=== PATIENT | female | born 1940 | race Caucasian/White ===

== ENCOUNTER 2018-08-30 05:15 | Inpatient (IN) ==
--- NOTE | 2018-08-11 09:17 | PAT Medication Instructions ---
Medication Instructions Date of Service August 11, 2018 Home Medications albuterol sulfate 1 - 2 puff INHALATION UD PRN aspirin [Aspir-81] 81 mg PO DAILY benazepril 40 mg PO QAM budesonide [Pulmicort Flexhaler] 1 inh INHALATION BID PRN gabapentin 800 mg PO TID hydrochlorothiazide 25 mg PO QAM insulin glargine [Lantus U-100 20 unit SUBCUT QPM lorazepam 1 mg PO BID PRN metformin 1,000 mg PO BID metoprolol tartrate 25 mg PO BID montelukast [Singulair] 10 mg PO QAM nitroglycerin 1 tab SUBLINGUAL UD PRN oxycodone-acetaminophen 1 tab PO Q4 PRN pantoprazole 40 mg PO QAM potassium chloride 10 meq PO TID ASK your prescriber and surgeon aspirin [Aspir-81] 81 mg PO DAILY DO NOT take the morning of surgery benazepril 40 mg PO QAM hydrochlorothiazide 25 mg PO QAM metformin 1,000 mg PO BID montelukast [Singulair] 10 mg PO QAM potassium chloride 10 meq PO TID Take morning of surgery With a small sip of water, OTHERWISE NOTHING TO EAT OR DRINK AFTER MIDNIGHT: albuterol sulfate 1 - 2 puff INHALATION UD PRN (use if needed; please bring with you to hospital day of surgery if possible) budesonide [Pulmicort Flexhaler] 1 inh INHALATION BID PRN (if needed) gabapentin 800 mg PO TID lorazepam 1 mg PO BID PRN (if needed) metoprolol tartrate 25 mg PO BID nitroglycerin 1 tab SUBLINGUAL UD PRN (if needed) oxycodone-acetaminophen 1 tab PO Q4 PRN (okay to take up to 4 hours prior to surgery if needed) pantoprazole 40 mg PO QAM Take evening before surgery albuterol sulfate 1 - 2 puff INHALATION UD PRN (if needed) budesonide [Pulmicort Flexhaler] 1 inh INHALATION BID PRN (if needed) gabapentin 800 mg PO TID insulin glargine [Lantus U-100 20 unit SUBCUT QPM lorazepam 1 mg PO BID PRN (if needed) metformin 1,000 mg PO BID metoprolol tartrate 25 mg PO BID nitroglycerin 1 tab SUBLINGUAL UD PRN (if needed) oxycodone-acetaminophen 1 tab PO Q4 PRN (if needed) potassium chloride 10 meq PO TID Other Notes If you have any questions please call us at [phone] or [phone] or [phone] or [phone]
--- NOTE | 2018-08-11 12:33 | Anesthesiology Consultation ---
Date of Service August 11, 2018 Assessment & Plan (1) Encounter for pre-operative examination: Plan: - Check BSG AM DOS - Cardio= 12/03/17= chronic AGUERO "at baseline." BP meds adjusted. CAD "stable." BP 135/78 at PAT visit. - PCP= 08/24/18= "no contraindications to surgery noted." Chart Review Chart Review: Acceptable Risk for Surgery and Patient seen in Pre Admission Testing Teaching & Discussion Pre-Anesthesia Teaching/Discussion Notes: Instructed NPO after midnight before surgery,except medications with 15 cc of water. Medication instructions provided according to the [facility] guidelines. History Surgery Operation Date: 08/30/18 09:35 Proposed Procedures p C5-C7 Anterior Cervical Discectomy and Fusion - Sonu Castellanos DO Height/Weight Height: 5 ft 5 in Weight: 114.4 kg Allergies Allergy/AdvReac Type Severity Reaction Status Date / Time atenolol Allergy Unknown UNKNOWN Verified 04/11/16 07:14 citalopram Allergy Unknown UNKNOWN Verified 04/11/16 07:14 hydroxychloroquine Allergy Unknown UNKNOWN Verified 04/11/16 07:14 venlafaxine Allergy Unknown UNKNOWN Verified 04/11/16 07:14 adhesive AdvReac Unknown TAPE - Verified 08/11/18 09:13 "TEARS SKIN" amlodipine AdvReac Unknown ?HYPOTENSIO Verified 08/11/18 09:13 N atorvastatin AdvReac Unknown MYALGIAS Verified 08/11/18 09:13 mivacurium AdvReac Unknown DIARRHEA- Verified 08/11/18 12:42 PATIENT DENIES simvastatin AdvReac Unknown MYALGIAS Verified 08/11/18 09:13 Medications Home Medications Medication Instructions Recorded Confirmed Last Taken albuterol sulfate 1 - 2 puff INHALATION UD PRN 08/04/18 08/04/18 Unknown aspirin [Aspir-81] 81 mg PO DAILY 08/04/18 08/04/18 08/03/18 benazepril 40 mg PO QAM 08/04/18 08/04/18 08/04/18 budesonide [Pulmicort Flexhaler] 1 inh INHALATION BID PRN 08/04/18 08/04/18 Unknown gabapentin 800 mg PO TID 08/04/18 08/04/18 08/04/18 hydrochlorothiazide 25 mg PO QAM 08/04/18 08/04/18 08/04/18 insulin glargine [Lantus U-100 20 unit SUBCUT QPM 08/04/18 08/04/18 08/03/18 Insulin] lorazepam 1 mg PO BID PRN 08/04/18 08/04/18 Unknown metformin 1,000 mg PO BID 08/04/18 08/04/18 08/04/18 metoprolol tartrate 25 mg PO BID 08/04/18 08/04/18 08/04/18 montelukast [Singulair] 10 mg PO QAM 08/04/18 08/04/18 08/04/18 nitroglycerin 1 tab SUBLINGUAL UD PRN 08/04/18 08/04/18 Unknown oxycodone-acetaminophen 1 tab PO Q4 PRN 08/04/18 08/04/18 Unknown pantoprazole 40 mg PO QAM 08/04/18 08/04/18 08/04/18 potassium chloride 10 meq PO TID 08/04/18 08/04/18 08/04/18 Past Medical History Medical History Acid reflux CONTROLLED Anxiety and depression Asthma STABLE CAD (coronary artery disease) NON-OBSTRUCTIVE PER 2003 CARDIAC CATH Degenerative disc disease Diabetes IDDM Fatty liver History of kidney stones History of skin cancer NO CHEMO OR RADIATION Hyperlipidemia Hypertension IBS (irritable bowel syndrome) Kidney cysts Morbid obesity Snores NO SLEEP STUDY Past Family History Family History Father Family history of lung cancer Family history of liver cancer Mother Family history of congestive heart failure Brother Family history of heart attack Past Surgical History Surgical History History of cardiac catheterization 2003= NO STENTS History of colonoscopy History of cystoscopy 2/2 KIDNEY STONES History of hysterectomy History of laparoscopic cholecystectomy STOP BANG Total 5 Social History Smoking Status: Former smoker tobacco type: cigarettes Smoking cigarettes per day: QUIT 30 YRS AGO Do You Dip or Chew Tobacco: No Hx Alcohol Use: No Hx Substance Use: No substance use type: does not use Physical Exam Vital Signs VITALS BP 135/78 P 66 TEMP 98.2 SP02 93%RA RESP 18 PHYSICAL Full neck and c-spine range of motion. Cervicalgia with extension. Full TMJ range of motion. TMD 3 finger breaths Mallampati Score 2 Dentition: full dentures on upper; several missing on lower Lungs: clear throughout to auscultation Cardiac: regular rate and rhythm, no murmurs noted Spine: normal Carotid arteries: negative bruit Extremities: no edema Testing Electrocardiogram Date: 03/01/18 Findings: + NSR @ (87) Possible LAE. NS STA. Chest X-Ray Date: 03/01/18 Findings: + NAD Stress Test Date: 03/02/18 Type: DSE (LEXISCAN) DSE negative for induced myocardial ischemia at 106% MPHR. EF 60%. Small sized basal septal/inferior wall motion abnormal with HK. No significant valvular disease. Grade I DD. Laboratory Results 08/11/18 12:54 08/11/18 12:54 Blood Type AB Negative 08/11/18 12:54 Antibody Screen NEGATIVE 08/11/18 12:54 PT 9.7 Seconds (9.0-12.0) 08/11/18 12:54 INR 1.0 (0.9-1.1) 08/11/18 12:54 APTT 24.2 Seconds (21.0-31.0) 08/11/18 12:54 Hemoglobin A1c 7.2 % (4.5-5.6) H 08/11/18 12:54 Urine Color Yellow 08/11/18 Unknown Urine Appearance Clear (Clear) 08/11/18 Unknown Urine pH 5.0 (4.5-7.5) 08/11/18 Unknown Ur Specific [place] 1.022 (1.000-1.030) 08/11/18 Unknown Urine Protein Negative (Negative) 08/11/18 Unknown Urine Glucose (UA) Negative (Negative) 08/11/18 Unknown Urine Ketones Negative (Negative) 08/11/18 Unknown Urine Nitrite Negative (Negative) 08/11/18 Unknown Ur Leukocyte Esterase Negative (Negative) 08/11/18 Unknown
[2018-08-11 13:19] LABS: Basophils # (auto) 0.02 K/uL (0-0.2); Basophils % (auto) 0.2 %; Eosinophils # (auto) 0.41 K/uL (0-0.5); Eosinophils % (auto) 4.7 %; Hematocrit (blood only) 44.4 % (37-47); Hemoglobin 14.3 g/dL (12.0-16.0); Immature Granulocytes # (auto) 0.02 K/uL (0.00-0.02); Immature Granulocytes % (auto) 0.2 %; Lymphocytes # (auto) 2.26 K/uL (1.2-3.4); Lymphocytes % (auto) 25.8 %; Mean Corpuscular Hgb Conc 32.2 g/dL (32-36); Mean Corpuscular Volume 94.5 fL (80-100); Mean Platelet Volume 10.5 fL (7.4-10.4); Monocytes # (auto) 0.78 K/uL (0.11-0.59); Monocytes % (auto) 8.9 %; Neutrophils # (auto) 5.26 K/uL (1.4-6.5); Neutrophils % (auto) 60.2 %; Platelet Count 276 K/uL (130-400); RDW Coefficient of Variation 13.8 % (11.5-14.5); RDW Standard Deviation 47.8 fL (36.4-46.3); White Blood Count 8.75 K/uL (4.8-10.8)
[2018-08-11 13:38] LABS: Estimated Average Glucose 160 mg/dl; Hemoglobin A1C 7.2 % (4.5-5.6)
[2018-08-11 13:48] LABS: Appearance Urine Clear (Clear); Bilirubin Urine Negative (Negative); Blood Urine Negative (Negative); Color Urine Yellow; Glucose Urine UA Negative (Negative); Ketones Urine Negative (Negative); Leukocyte Esterase Urine Negative (Negative); Nitrite Urine Negative (Negative); Protein Urine Negative (Negative); Specific Gravity Urine 1.022 (1.000-1.030); Urobilinogen Urine Negative (Negative)
[2018-08-11 13:48] LABS: Partial Thromboplastin Ratio 0.9; Partial Thromboplastin Time 24.2 Seconds (21.0-31.0); Prothrombin Time 9.7 Seconds (9.0-12.0)
[2018-08-11 15:04] LABS: Calcium 8.9 mg/dl (8.5-10.1); Creatinine Clr Calc Pharmacy 71.1 ml/min; Est GFR (African American) 77.1; Est GFR (Non-African American) 66.6; Potassium 4.2 mmol/L (3.5-5.1)
[2018-08-30] MEDS ORDERED: LR 15ML/HR IV SCH (06:00)
[2018-08-30] MEDS ORDERED: CEFAZOLIN 2000MG 2,000 MG/15 ML SYR IV SCH (06:00)
[2018-08-30] MEDS ORDERED: CeleBREX 200 MG CAP PO SCH (06:00)
[2018-08-30] MEDS ORDERED: GABAPENTIN 300 MG PO SCH (06:00)
[2018-08-30] MEDS ORDERED: ACETAMINOPHEN 500 MG TAB PO SCH (06:00)
[2018-08-30] MEDS ORDERED: fentaNYL citrate 100 MCG/2 ML VIAL ONE ×3 (06:33→08:09)
[2018-08-30] MEDS ORDERED: MIDAZOLAM HCL 1 MG/ML 2ML VIAL ONE (06:33)
[2018-08-30] MEDS ORDERED: BACITRACIN INJ 50,000 UNIT VIAL ONE (06:51)
[2018-08-30] MEDS ORDERED: ONDANSETRON INJ 2 MG/ML 2 ML VIAL IV PRN ×2 (06:56→11:14)
[2018-08-30] MEDS ORDERED: ATROPINE SULFATE 0.1 MG/ML 10ML SYR IV PRN (06:56)
[2018-08-30] MEDS ORDERED: PROMETHAZINE HCL 6.25 MG in SODIUM CHLORIDE 0.9% 50 ML IV PRN (06:56)
--- NOTE | 2018-08-30 07:33 | History & Physical Bridge Note ---
Date of Service August 30, 2018 History & Physical Bridge Note I have examined the patient, reviewed the History & Physical and in the interval since the performance of the History & Physical I have noted the following changes of clinical significance: no changes noted
--- NOTE | 2018-08-30 07:34 | History & Physical Report ---
Date of Service August 30, 2018 Assessment & Plan (1) Cervical stenosis of spinal canal: Anterior cervical discectomy and fusion C5-7 Present on Admission?: Yes History of Present Illness Chief Complaint: Neck and arm pain Primary Care Provider: Maritza Mejias DO This is a 78-year-old female that presents with chronic persistent neck and arm pain failing extensive course of nonoperative care she is here for surgical intervention. Allergies Allergy/AdvReac Type Severity Reaction Status Date / Time atenolol Allergy Unknown UNKNOWN Verified 08/30/18 05:38 citalopram Allergy Unknown UNKNOWN Verified 08/30/18 05:38 hydroxychloroquine Allergy Unknown UNKNOWN Verified 08/30/18 05:38 venlafaxine Allergy Unknown UNKNOWN Verified 08/30/18 05:38 adhesive AdvReac Unknown TAPE - Verified 08/30/18 05:38 "TEARS SKIN" amlodipine AdvReac Unknown ?HYPOTENSIO Verified 08/30/18 05:38 N atorvastatin AdvReac Unknown MYALGIAS Verified 08/30/18 05:38 mivacurium AdvReac Unknown DIARRHEA- Verified 08/30/18 05:38 PATIENT DENIES simvastatin AdvReac Unknown MYALGIAS Verified 08/30/18 05:38 Home Medications Home Medications Medication Instructions Recorded Confirmed Type albuterol sulfate 1 - 2 puff INHALATION UD PRN 08/04/18 08/30/18 History aspirin [Aspir-81] 81 mg PO DAILY 08/04/18 08/30/18 History benazepril 40 mg PO QAM 08/04/18 08/30/18 History budesonide [Pulmicort Flexhaler] 1 inh INHALATION BID PRN 08/04/18 08/30/18 History gabapentin 800 mg PO TID 08/04/18 08/30/18 History hydrochlorothiazide 25 mg PO QAM 08/04/18 08/30/18 History insulin glargine [Lantus U-100 20 unit SUBCUT QPM 08/04/18 08/30/18 History Insulin] lorazepam 1 mg PO BID PRN 08/04/18 08/30/18 History metformin 1,000 mg PO BID 08/04/18 08/30/18 History metoprolol tartrate 25 mg PO BID 08/04/18 08/30/18 History montelukast [Singulair] 10 mg PO QAM 08/04/18 08/30/18 History nitroglycerin 1 tab SUBLINGUAL UD PRN 08/04/18 08/30/18 History oxycodone-acetaminophen 1 tab PO Q4 PRN 08/04/18 08/30/18 History pantoprazole 40 mg PO QAM 08/04/18 08/30/18 History potassium chloride 10 meq PO TID 08/04/18 08/30/18 History Past Med/Surg History Social History Preferred Language: Cameroonian Communication Ability: Effective 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 REASON/COORDINATED THROUGH PCP) Feels Safe at Home: Yes Smoking Status: Former smoker Hx Alcohol Use: No Hx Substance Use: No Physical Exam Vital Signs (Past 24 Hours): Last Vital Signs Temp 36.9 C 08/30/18 05:43 Pulse 83 08/30/18 05:43 Resp 20 08/30/18 05:43 BP 143/91 H 08/30/18 05:43 Pulse Ox 96 08/30/18 05:43 Results & Data Medications Administered Acetaminophen (Tylenol) 1,000 mg PO PREOP AIMEE Stop: 08/30/18 18:00 Last Admin: 08/30/18 06:08 Dose: 1,000 mg Documented by: [id number] Celecoxib (Celebrex) 200 mg PO PREOP AIMEE Stop: 08/30/18 18:00 Last Admin: 08/30/18 06:08 Dose: 200 mg Documented by: [id number] Gabapentin (Neurontin) 300 mg PO PREOP AIMEE Stop: 08/30/18 18:00 Last Admin: 08/30/18 05:53 Dose: Not Given Documented by: [id number] Lactated Ringer's (Lr) 1,000 mls @ 15 mls/hr IV .Q24H AIMEE Stop: 08/31/18 05:59 Last Admin: 08/30/18 05:50 Dose: 15 mls/hr Documented by: [id number]
[2018-08-30] MEDS ORDERED: HYDROmorphone INJ 2 MG/ML SYR/VIAL ONE (08:05)
[2018-08-30] MEDS ORDERED: LIDOCAINE HCL 2% 2 ML VIAL/AMP(20MG/ML) INFIL ONE (08:06)
[2018-08-30] MEDS ORDERED: GLYCOPYRROLATE 0.2 MG/ML VIAL ONE (08:06)
[2018-08-30] MEDS ORDERED: ePHEDrine sulfate 50 MG/ML SYR ONE (08:06)
[2018-08-30] MEDS ORDERED: PROPOFOL IV EMULSION 10 MG/ML 20 ML VIAL IV ONE (08:06)
[2018-08-30] MEDS ORDERED: ROCURONIUM BROMIDE 10 MG/ML 5 ML VIAL ONE (08:06)
[2018-08-30] MEDS ORDERED: DEXAMETHASONE SOD INJ 4 MG/ML VIAL ONE (08:06)
[2018-08-30] MEDS ORDERED: NEOSTIGMINE METHYLSULFATE 1 MG/ML 10ML VIAL ONE (08:06)
[2018-08-30] MEDS ORDERED: ONDANSETRON INJ 2 MG/ML 2 ML VIAL ONE (08:06)
[2018-08-30] MEDS ORDERED: FLOSEAL HEMOSTATIC MATRIX 10ML TOP ONE (08:58)
--- NOTE | 2018-08-30 09:13 | Operative Report ---
Post Operative Report Pre & Post Diagnosis Operation Date: 08/30/18 07:45 Pre-Op Diagnosis: Cervical stenosis with radiculopathy Post-Op Diagnosis: Same Procedure Operation Date: 08/30/18 07:45 Actual Procedures #1 anterior cervical discectomy bilateral foraminotomies C5-6 C6-7. #2 anterior cervical arthrodesis C5-6 C6-7. #3 placement of cortical allograft 8 mm NC 6 and 7 mm at C6-7 filled with DBM. #4 application brannon plate and screws from C5-C7. Surgeon Sonu Castellanos DO Bright Cutter None Estimated Blood Loss 10 Findings Consistent with Post-Op Diagnosis Specimens None Description of Procedure Patient was met with preoperatively case discussed all questions addressed. After informed consent obtained patient was taken to the operative suite underwent intubation placed in a supine position the Neal table the head [place] cutter head sharpener. All bony prominences well-padded eyes inspected to ensure no external pressure placed upon the peer at this point the anterior cervical spine was prepped and draped in normal sterile fashion. The assistance of fluoroscopy identified the see 6 vertebral body and transverse incision was placed along the right anterior aspect of the cervical spine overlying this region. Sharp dissection with the assistance of bipolar electrocautery was performed down to and exposing the anterior cervical spine from C5-C7. Self- retaining retractors placed. Then performed a complete discectomy of C5-6 out to the uncovertebral joints bilaterally. Haines distracting pins utilized to assist in visualization. Removed all posterior annular fibers longitudinal ligament bilateral foraminotomies performed. Endplates were then burred to subcortical mean bone and a 8 mm cortical allograft filled with DBM tamped in position. Then proceeded to see 6 7. Again complete discectomy performed out to the uncovertebral joints bilaterally. Haines distracting pins again utilized. I removed all posterior annular fibers and longitudinal ligament performed bilateral foraminotomies. Endplates were then burred to subcortical bleeding bone and a 7 mm cortical allograft filled with DBM tamped in position. All anterior osteophytes were then burred to a smooth cortical surface and a brannon plate and screws applied with the assistance of fluoroscopy. The incision was then copious irrigated explored to ensure no damage to surrounding structures remaining and a 10 round ABDOULAYE drain inserted. It was then closed with 2 Vicryl in the fascia and 4-0 Monocryl for final skin closure. Steri-Strip sterile dressings placed. Patient will continue PACU stable disc. I attest to the content of the Intraoperative Record and any orders documented therein. Any exceptions are noted below.
[2018-08-30] MEDS: HYDROmorphone INJ 1 MG/ML SYRINGE IV PRN ×8 (09:30→10:10)
--- NOTE | 2018-08-30 09:53 | Fluoroscopy Report ---
Cervical SPINE, INTRAOPERATIVE FLUOROSCOPY HISTORY: C5 C7 ACDF. FLUOROSCOPY TIME: 27 seconds. FINDINGS: Intraoperative fluoroscopy was provided for the cervical spine. 3 fluoroscopic spot images were obtained. Anterior cervical discectomy and fusion from C5 through C7. The hardware appears intac t. IMPRESSION: Fluoroscopy provided for a C5-C7 ACDF. Electronically signed by: Rajinder Coyle M.D. 08/30/2018 9:52 AM
[2018-08-30] MEDS ORDERED: LARYING-O-JET KIT (LTA) ONE (09:59)
--- NOTE | 2018-08-30 11:08 | Anesthesiology Progress Note ---
Date of Service August 30, 2018 Anesthesia Post Procedure Vital Signs Vital Signs: Temp Pulse Pulse Pulse Resp BP BP 08/30/18 10:46 36.2 C L 63 16 08/30/18 10:45 59 L 15 08/30/18 10:40 59 L 15 08/30/18 10:36 59 L 12 161/66 H 08/30/18 10:35 58 L 12 08/30/18 10:31 61 14 155/77 H 08/30/18 10:30 60 21 08/30/18 10:26 56 L 12 158/66 H 08/30/18 10:25 59 L 15 08/30/18 10:21 59 L 19 168/75 H 08/30/18 10:20 59 L 17 08/30/18 10:18 61 16 149/99 H 08/30/18 10:16 60 20 178/78 H 08/30/18 10:11 60 16 177/86 H 08/30/18 10:10 59 L 12 08/30/18 10:07 62 18 08/30/18 10:06 63 15 197/86 H 08/30/18 10:02 59 L 20 179/96 H 08/30/18 10:00 60 15 180/112 H 08/30/18 09:56 60 15 165/79 H 08/30/18 09:55 64 16 08/30/18 09:51 62 14 176/76 H 08/30/18 09:50 63 13 08/30/18 09:46 65 15 172/82 H 08/30/18 09:45 66 14 08/30/18 09:41 66 16 175/83 H 08/30/18 09:40 63 20 08/30/18 09:36 65 19 181/89 H 08/30/18 09:35 63 14 08/30/18 09:32 65 12 08/30/18 09:23 36.0 C L 75 14 175/75 H 08/30/18 05:43 36.9 C 83 20 143/91 H Pulse Ox 08/30/18 10:46 98 08/30/18 10:45 96 08/30/18 10:40 97 08/30/18 10:36 97 08/30/18 10:35 98 08/30/18 10:31 98 08/30/18 10:30 97 08/30/18 10:26 95 03/04/19 10:25 95 08/30/18 10:21 95 08/30/18 10:20 95 08/30/18 10:18 94 08/30/18 10:16 95 08/30/18 10:11 97 08/30/18 10:10 96 08/30/18 10:07 99 08/30/18 10:06 98 08/30/18 10:02 98 08/30/18 10:00 98 08/30/18 09:56 99 08/30/18 09:55 98 08/30/18 09:51 99 08/30/18 09:50 98 08/30/18 09:46 98 08/30/18 09:45 98 08/30/18 09:41 97 08/30/18 09:40 98 08/30/18 09:36 98 08/30/18 09:35 98 08/30/18 09:32 98 08/30/18 09:23 98 08/30/18 05:43 96 Pain Intensity Neck: Pain Intensity: 6 Notes Mental Status: alert / awake / arousable Patient Amnestic to Procedure: Yes Nausea / Vomiting: adequately controlled Pain: adequately controlled Airway Patency, RR, SpO2: stable & adequate BP & HR: stable & adequate Hydration State: stable & adequate Anesthetic Complications: no major complications apparent
[2018-08-30] MEDS ORDERED: HYDROmorphone INJ 0.5 MG/0.5 ML SYR IV PRN (11:14)
[2018-08-30] MEDS ORDERED: RACEPINEPHRINE 2.25% NEBU SOLN 0.5 ML VIAL INH PRN (11:14)
[2018-08-30] MEDS ORDERED: NITROGLYCERIN SL 0.4 MG/TAB TAB SL PRN (11:14)
[2018-08-30] MEDS ORDERED: DO NOT ADMINISTER PNEUMOCOCCAL VACCINE PRN (11:14)
[2018-08-30] MEDS ORDERED: OXYCODONE/APAP 7.5/325MG TAB PO PRN (11:14)
[2018-08-30] MEDS ORDERED: DO NOT ADMINISTER FLU VACCINE PRN (11:14)
[2018-08-30] MEDS ORDERED: DEXAMETHASONE SOD PHOSPHATE 8 MG in SYRINGE 0 ML IV PRN (11:14)
[2018-08-30] MEDS ORDERED: MAGNESIUM HYDROXIDE SUSP 30 ML UDC PO PRN (11:14)
[2018-08-30] MEDS ORDERED: LORazepam 0.5 MG/1 ML VIAL IV PRN (11:14)
[2018-08-30] MEDS ORDERED: LORazepam 0.5 MG TAB PO PRN (11:14)
[2018-08-30] MEDS ORDERED: DiphenhydrAMINE HCL 50 MG/ML VIAL IV PRN (11:14)
[2018-08-30] MEDS ORDERED: NALOXONE HCL 0.4 MG/1 ML VIAL/CARP IV PRN (11:14)
[2018-08-30] MEDS ORDERED: ACETAMINOPHEN 1,000 MG/100 ML VIAL IV PRN (11:14)
[2018-08-30] MEDS ORDERED: BUDESONIDE 90 MCG INH INH PRN (11:14)
[2018-08-30] MEDS ORDERED: LORazepam 1 MG TAB PO PRN (11:14)
[2018-08-30] MEDS ORDERED: COUGH DROP (SUGAR FREE) LOZ 24 LOZ/1 BOX BUCCAL PRN (12:12)
[2018-08-30] MEDS ORDERED: DEXTROSE 50% 50 ML SYRINGE IV PRN (12:51)
[2018-08-30] MEDS ORDERED: GLUCOSE 10 TABS/TUBE PO PRN (12:51)
[2018-08-30] MEDS ORDERED: CARBOHYDRATES FOR HYPOGLYCEMIA PO PRN (12:51)
[2018-08-30] MEDS ORDERED: GLUCOSE 40% GEL 15 GM TUBE PO PRN (12:51)
[2018-08-30] MEDS ORDERED: GLUCAGON FOR INJ 1 MG VIAL SQ PRN (12:51)
[2018-08-30] MEDS: SODIUM CHLORIDE 0.9% 1000ML 1,000 ML IV SCH (14:13)
[2018-08-30] MEDS: GABAPENTIN 800 MG TAB PO SCH ×2 (14:33→20:53)
[2018-08-30] MEDS: OXYCODONE HCL IR 5 MG TAB (IMMEDIATE RELEASE) PO PRN ×2 (14:46→20:10)
--- NOTE | 2018-08-30 15:26 | Hospitalist Consultation ---
Date of Consultation August 30, 2018 Assessment & Plan (1) H/O cervical spine surgery: (2) Cervical stenosis of spinal canal: This is a 78yo F with a PMH of HTN, HLD, DM II, asthma, non-obstructive CAD, asthma, h/o gastric ulcer, mood disorder and cervical spine stenosis who is POD #0 s/p anterior cervical decompression and fusion C5-C7 by Dr. Castellanos. -Pt is doing well post-operatively -Per ortho for pain control, wound care, anticoagulation and activities -Monitor H&H. Pre-operative hgb 14.3 (EBL: 10 mL, ABDOULAYE drain:30 mL) -Continue incentive spirometry, PT/OT when appropriate (3) Diabetes mellitus, type II: A1c of 7.2 in Jul 2018 -Hold home agents -Given 8mg IV dexamethasone pre-operatively -Basal/bolus insulin per protocol -BSG AC HS (4) CAD (coronary artery disease): Non-obstructive CAD on 2003 cardiac cath -Had a negative dobutamine stress test in Feb 2018 -No chest pain or EKG changes -Continue aspirin and pravastatin (5) Hypertension: Mild elevated post-operatively in setting of pain -Continue home Lopressor,Hydralazine, HCTZ and Benazapril with hold parameters -Monitor kidney function (6) Asthma: Stable. Continue home albuterol inh, Budesonide inh, nebs PRN (7) Anxiety and depression: Continue Lexapro, Ativan PRN (8) GERD (gastroesophageal reflux disease): Also with h/o healed gastric ulcer on EGD in 2018 -Continue PPI, sucralfate PCP: Randell Dispo: Per primary service Patient seen in collaboration with Dr. More. Please see addendum. Supervising Physician Co-Signing Physician Notes I have seen and examined the patient and have discussed the case with the provider above. I agree with the assessment and plan as stated. DO Derik History of Present Illness Reason for Consultation: post op med mgmt Attending Physician: Sonu Castellanos DO History of Present Illness This is a 78yo F with a PMH of HTN, HLD, DM II, asthma, non-obstructive CAD, asthma, h/o gastric ulcer, mood disorder and cervical spine stenosis who is POD #0 s/p anterior cervical decompression and fusion C5-C7 by Dr. Castellanos. Patient is feeling well post-operatively. Minimal surgical site pain. Tolerated clear liquids for breakfast post-operatively without nausea, vomiting or abdominal pain. Denies fever or chills. Has chronic shortness of breath and cough with asthma and takes inhalers/neb treatment as needed. Last neb treatment was yesterday. No chest pain, palpitations, wheezing, dysuria, hematuria or constipation. Endorses recent problem with abdominal discomfort after eating with associated diarrhea. Has h/o gastric ulcer as well as IBS. Was started on Sucralfate by PCP with improvement of symptoms. PCP is Dr. Mejias in [place]. Allergies Allergy/AdvReac Type Severity Reaction Status Date / Time atenolol Allergy Unknown UNKNOWN Verified 08/30/18 05:38 citalopram Allergy Unknown UNKNOWN Verified 08/30/18 05:38 hydroxychloroquine Allergy Unknown UNKNOWN Verified 08/30/18 05:38 venlafaxine Allergy Unknown UNKNOWN Verified 08/30/18 05:38 adhesive AdvReac Unknown TAPE - Verified 08/30/18 05:38 "TEARS SKIN" amlodipine AdvReac Unknown ?HYPOTENSIO Verified 08/30/18 05:38 N atorvastatin AdvReac Unknown MYALGIAS Verified 08/30/18 05:38 mivacurium AdvReac Unknown DIARRHEA- Verified 08/30/18 05:38 PATIENT DENIES simvastatin AdvReac Unknown MYALGIAS Verified 08/30/18 05:38 Home Medications Home Medications Medication Instructions Recorded Confirmed Type albuterol sulfate 2 puff INHALATION Q6H PRN 08/04/18 08/30/18 History aspirin [Aspir-81] 81 mg PO DAILY 08/04/18 08/30/18 History benazepril 40 mg PO QAM 08/04/18 08/30/18 History budesonide [Pulmicort Flexhaler] 1 inh INHALATION BID PRN 08/04/18 08/30/18 History gabapentin 800 mg PO TID 08/04/18 08/30/18 History hydrochlorothiazide 25 mg PO QAM 08/04/18 08/30/18 History insulin glargine [Lantus U-100 20 unit SUBCUT QPM 08/04/18 08/30/18 History Insulin] lorazepam 1 mg PO BID PRN 08/04/18 08/30/18 History metformin 1,000 mg PO BID 08/04/18 08/30/18 History metoprolol tartrate 25 mg PO BID 08/04/18 08/30/18 History montelukast [Singulair] 10 mg PO QAM 08/04/18 08/30/18 History nitroglycerin 1 tab SUBLINGUAL UD PRN 08/04/18 08/30/18 History oxycodone-acetaminophen 1 tab PO Q4 PRN 08/04/18 08/30/18 History pantoprazole 40 mg PO QAM 08/04/18 08/30/18 History potassium chloride 10 meq PO TID 08/04/18 08/30/18 History albuterol sulfate 1.25 mg INHALATION QID PRN 08/30/18 08/30/18 History dextran 70-hypromellose 1 drp OPHTHALMIC (EYE) DAILY 08/30/18 08/30/18 History escitalopram oxalate 10 mg PO DAILY 08/30/18 08/30/18 History hydralazine 25 mg PO TID 08/30/18 08/30/18 History hydroxyzine HCl 25 mg PO QID PRN 08/30/18 08/30/18 History nystatin 1 applic TOPICAL TID PRN 08/30/18 08/30/18 History pravastatin 80 mg PO HS 08/30/18 08/30/18 History sucralfate [Carafate] 1 g PO ACHS 08/30/18 08/30/18 History travoprost [Travatan Z] 1 drp OPHTHALMIC (EYE) PM 08/30/18 08/30/18 History Patient History Medical History Diabetes mellitus, type II (Chronic) GERD (gastroesophageal reflux disease) (Chronic) Hypertension (Chronic) Asthma (Chronic) STABLE Anxiety and depression (Chronic) Degenerative disc disease (Chronic) IBS (irritable bowel syndrome) (Chronic) History of kidney stones (Chronic) Kidney cysts (Chronic) Fatty liver (Chronic) History of skin cancer (Resolved) NO CHEMO OR RADIATION CAD (coronary artery disease) (Chronic) NON-OBSTRUCTIVE PER 2004 CARDIAC CATH Morbid obesity (Chronic) Cervical stenosis of spinal canal (Chronic) Hyperlipidemia (Chronic) Surgical History History of cardiac catheterization (Resolved) Non-obstuctive CAD in 2003 History of hysterectomy (Resolved) History of laparoscopic cholecystectomy (Resolved) H/O cervical spine surgery (Acute) Family History Father Family history of lung cancer Family history of liver cancer Mother Family history of congestive heart failure Brother Family history of heart attack Social History Preferred Language: Bel[place]an Communication Ability: Effective 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 REASON/COORDINATED THROUGH PCP) Feels Safe at Home: Yes Smoking Status: Former smoker Hx Alcohol Use: Yes Hx Substance Use: No Review of Systems Ten systems reviewed and negative except as noted in the HPI. Physical Exam Vital Signs (Past 24 Hours): Last Vital Signs Temp 36.5 C 08/30/18 13:55 Pulse 66 08/30/18 13:55 Resp 18 08/30/18 13:55 BP 140/80 08/30/18 13:55 Pulse Ox 98 08/30/18 13:55 Physical Exam: General Appearance: WD/WN, no apparent distress, wearing cervical spine brace, resting comfortably Head: normocephalic, atraumatic Eyes: normal inspection, PERRL, EOMI ENT: hearing grossly normal, pharynx normal (moist mucous membranes) Neck: supple, no JVD, no adenopathy Respiratory/Chest: lungs clear to auscultation except for a few scattered wheezes in bilateral anterior aviles. No rales or rhonci. No respiratory distress or accessory muscle use Cardiovascular: regular rate, rhythm, no murmur, normal peripheral pulses Abdomen/GI: normal bowel sounds, soft, non-tender to palpation Extremities/Musculoskelatal: + C-spine brace in place, dressing clean/dry/intact. Drain visualized. No calf tenderness, normal capillary refill, no pedal edema Neurologic/Psych: alert, normal mood/affect, oriented x 3 Skin: normal color, warm/dry Results & Data Laboratory Results Pertinent pre-op labwork (08/11/18): HGB: 14.3 Cr:0.85 GFR: 67 Hgb a1c: 7.2
[2018-08-30] MEDS ORDERED: INSULIN GLARGINE SOLOSTAR 100 UNITS/ML 3 ML PEN SC STA (15:33)
[2018-08-30] MEDS ORDERED: SCOPOLAMINE 1.5 MG TDSY TD SCH (16:00)
[2018-08-30] MEDS ORDERED: ALBUTEROL 0.083% NEBU SOLN 3 ML VIAL INH PRN (16:04)
[2018-08-30] MEDS ORDERED: NYSTATIN POWDER 15GM BTL EXT PRN (16:04)
[2018-08-30] MEDS ORDERED: ALBUTEROL HFA 8 GM INHALER INH PRN (16:04)
[2018-08-30] MEDS ORDERED: guaiFENesin SUGAR FREE 200 MG/10 ML UDC PO PRN (16:19)
[2018-08-30] MEDS: CEFAZOLIN 2000MG 2,000 MG/15 ML SYR IV SCH (16:19)
[2018-08-30] MEDS: POTASSIUM CHLORIDE 10 MEQ TABCR PO SCH (17:04)
[2018-08-30] MEDS: INSULIN ASPART 100 UNITS/ML 3 ML PEN SC SCH ×2 (18:18→21:02)
[2018-08-30] MEDS: SUCRALFATE 1 GM TAB PO SCH ×2 (18:19→20:55)
[2018-08-30] MEDS: GUAIFENESIN/CODEINE 200MG/20MG 10ML UDC PO PRN (19:13)
[2018-08-30] MEDS: DOCUSATE SODIUM 100 MG CAP PO SCH (20:55)
[2018-08-30] MEDS: METOPROLOL TARTRATE 25 MG TAB PO SCH (20:55)
[2018-08-30] MEDS ORDERED: TRAVOPROST Z 0.004% OPH SOLN 2.5 ML BTL OP SCH (21:00)
[2018-08-30] MEDS ORDERED: PRAVASTATIN SOD 40 MG TAB PO SCH (21:00)
[2018-08-30] MEDS: INSULIN GLARGINE SOLOSTAR 100 UNITS/ML 3 ML PEN SC SCH (21:02)
[2018-08-31] MEDS: CHECK SCOPOLAMINE PATCH PLACEMENT SCH ×2 (00:01→08:50)
[2018-08-31] MEDS: SODIUM CHLORIDE 0.9% 1000ML 1,000 ML IV SCH (02:06)
[2018-08-31] MEDS: GUAIFENESIN/CODEINE 200MG/20MG 10ML UDC PO PRN (04:15)
[2018-08-31 06:15] LABS: Hematocrit (blood only) 38.3 % (37-47); Hemoglobin 12.4 g/dL (12.0-16.0); Mean Corpuscular Hgb Conc 32.4 g/dL (32-36); Mean Corpuscular Volume 94.1 fL (80-100); Platelet Count 229 K/uL (130-400); RDW Coefficient of Variation 13.8 % (11.5-14.5); RDW Standard Deviation 47.6 fL (36.4-46.3); Red Blood Count 4.07 M/uL (4.2-5.4); White Blood Count 12.87 K/uL (4.8-10.8)
[2018-08-31 06:43] LABS: BUN Creatinine Ratio 20.8 (10-20); Calcium 8.2 mg/dl (8.5-10.1); Creatinine Clr Calc Pharmacy 76.8 ml/min; Est GFR (African American) 85.6; Est GFR (Non-African American) 73.8; Potassium 4.1 mmol/L (3.5-5.1)
[2018-08-31] MEDS: INSULIN ASPART 100 UNITS/ML 3 ML PEN SC SCH (08:44)
[2018-08-31] MEDS: SUCRALFATE 1 GM TAB PO SCH (08:48)
[2018-08-31] MEDS: POTASSIUM CHLORIDE 10 MEQ TABCR PO SCH (08:50)
[2018-08-31] MEDS: METOPROLOL TARTRATE 25 MG TAB PO SCH (08:51)
[2018-08-31] MEDS: DOCUSATE SODIUM 100 MG CAP PO SCH (08:51)
[2018-08-31] MEDS: INSULIN GLARGINE SOLOSTAR 100 UNITS/ML 3 ML PEN SC SCH (08:52)
[2018-08-31] MEDS: CEFAZOLIN 2000MG 2,000 MG/15 ML SYR IV SCH ×2 (08:53)
[2018-08-31] MEDS: GABAPENTIN 800 MG TAB PO SCH (08:54)
[2018-08-31] MEDS ORDERED: MONTELUKAST SODIUM 10 MG TABLET PO SCH (09:00)
[2018-08-31] MEDS ORDERED: hydroCHLOROthiazide 25 MG TAB PO SCH (09:00)
[2018-08-31] MEDS ORDERED: ASPIRIN 81 MG ECTAB PO SCH (09:00)
[2018-08-31] MEDS ORDERED: PANTOprazole 40 MG TAB PO SCH (09:00)
[2018-08-31] MEDS ORDERED: BENAZEPRIL HCL 10 MG TAB PO SCH (09:00)
[2018-08-31] MEDS ORDERED: ESCITALOPRAM OXALATE 10 MG TAB PO SCH (09:00)
--- NOTE | 2018-08-31 09:29 | Anesthesiology Progress Note ---
Date of Service August 31, 2018 Anesthesia Post Procedure Vital Signs Vital Signs: Temp Pulse Pulse Resp BP BP Pulse Ox 08/31/18 08:50 62 16 124/80 97 08/31/18 07:11 68 22 92 08/31/18 07:09 36.8 C 58 L 18 129/82 95 08/31/18 06:00 36.8 C 60 18 143/81 H 99 08/31/18 04:00 36.4 C L 76 18 141/71 H 99 08/31/18 03:46 54 L 18 100 08/31/18 02:00 36.6 C 70 18 125/77 98 08/31/18 00:00 36.5 C 80 18 133/80 97 08/30/18 23:47 75 18 96 08/30/18 21:55 36.6 C 63 16 143/84 H 98 08/30/18 21:45 72 18 98 08/30/18 20:55 67 143/84 H 08/30/18 19:55 36.7 C 64 20 150/82 H 98 08/30/18 17:53 36.8 C 82 137/82 94 08/30/18 15:55 36.7 C 63 16 152/84 H 97 08/30/18 15:20 69 18 98 08/30/18 13:55 36.5 C 66 18 140/80 98 08/30/18 12:55 36.5 C 69 18 140/75 98 08/30/18 11:55 36.2 C L 60 18 147/80 H 08/30/18 11:28 59 L 16 100 08/30/18 11:25 36.2 C L 58 L 16 149/76 H 98 08/30/18 10:55 36.5 C 60 16 149/85 H 08/30/18 10:46 36.2 C L 63 16 98 08/30/18 10:45 59 L 15 96 08/30/18 10:40 59 L 15 97 08/30/18 10:36 59 L 12 161/66 H 97 08/30/18 10:35 58 L 12 98 08/30/18 10:31 61 14 155/77 H 98 08/30/18 10:30 60 21 97 08/30/18 10:26 56 L 12 158/66 H 95 08/30/18 10:25 59 L 15 95 08/30/18 10:21 59 L 19 168/75 H 95 08/30/18 10:20 59 L 17 95 08/30/18 10:18 61 16 149/99 H 94 08/30/18 10:16 60 20 178/78 H 95 08/30/18 10:11 60 16 177/86 H 97 08/30/18 10:10 59 L 12 96 08/30/18 10:07 62 18 99 08/30/18 10:06 63 15 197/86 H 98 08/30/18 10:02 59 L 20 179/96 H 98 08/30/18 10:00 60 15 180/112 H 98 08/30/18 09:56 60 15 165/79 H 99 08/30/18 09:55 64 16 98 08/30/18 09:51 62 14 176/76 H 99 08/30/18 09:50 63 13 98 08/30/18 09:46 65 15 172/82 H 98 08/30/18 09:45 66 14 98 08/30/18 09:41 66 16 175/83 H 97 08/30/18 09:40 63 20 98 08/30/18 09:36 65 19 181/89 H 98 08/30/18 09:35 63 14 98 08/30/18 09:32 65 12 98 Pulse Ox 08/31/18 08:50 08/31/18 07:11 08/31/18 07:09 08/31/18 06:00 08/31/18 04:00 08/31/18 03:46 08/31/18 02:00 08/31/18 00:00 08/30/18 23:47 08/30/18 21:55 08/30/18 21:45 08/30/18 20:55 08/30/18 19:55 08/30/18 17:53 08/30/18 15:55 08/30/18 15:20 08/30/18 13:55 08/30/18 12:55 08/30/18 11:55 08/30/18 11:28 08/30/18 11:25 08/30/18 10:55 100 08/30/18 10:46 08/30/18 10:45 08/30/18 10:40 08/30/18 10:36 08/30/18 10:35 08/30/18 10:31 08/30/18 10:30 08/30/18 10:26 08/30/18 10:25 08/30/18 10:21 08/30/18 10:20 08/30/18 10:18 08/30/18 10:16 08/30/18 10:11 08/30/18 10:10 08/30/18 10:07 08/30/18 10:06 08/30/18 10:02 08/30/18 10:00 08/30/18 09:56 08/30/18 09:55 08/30/18 09:51 08/30/18 09:50 08/30/18 09:46 08/30/18 09:45 08/30/18 09:41 08/30/18 09:40 08/30/18 09:36 08/30/18 09:35 08/30/18 09:32 Pain Intensity Neck: Pain Intensity: 3 Notes Mental Status: alert / awake / arousable and participated in evaluation Patient Amnestic to Procedure: Yes Nausea / Vomiting: see Notes below Pain: adequately controlled Airway Patency, RR, SpO2: stable & adequate BP & HR: stable & adequate Hydration State: stable & adequate Anesthetic Complications: no major complications apparent and Pt Satisfied with anesthetic care
--- NOTE | 2018-08-31 11:42 | Discharge Summary ---
Date of Service August 31, 2018 Admission HPI Per Admitting Provider This is a 78-year-old female that presents with chronic persistent neck and arm pain failing extensive course of nonoperative care she is here for surgical intervention. Principal Diagnosis Cervical spinal stenosis with radiculopathy Discharge Data Allergies Allergy/AdvReac Type Severity Reaction Status Date / Time atenolol Allergy Unknown UNKNOWN Verified 08/30/18 05:38 citalopram Allergy Unknown UNKNOWN Verified 08/30/18 05:38 hydroxychloroquine Allergy Unknown UNKNOWN Verified 08/30/18 05:38 venlafaxine Allergy Unknown UNKNOWN Verified 08/30/18 05:38 adhesive AdvReac Unknown TAPE - Verified 08/30/18 05:38 "TEARS SKIN" amlodipine AdvReac Unknown ?HYPOTENSIO Verified 08/30/18 05:38 N atorvastatin AdvReac Unknown MYALGIAS Verified 08/30/18 05:38 mivacurium AdvReac Unknown DIARRHEA- Verified 08/30/18 05:38 PATIENT DENIES simvastatin AdvReac Unknown MYALGIAS Verified 08/30/18 05:38 Consultations 08/30/18 11:14 Consult Hospitalist Routine Procedures Performed Operation Date: 08/30/18 07:45 Actual Procedures p C5-C7 Anterior Cervical Discectomy and Fusion(Not Applicable) - Sonu Castellanos DO Ordered Studies 08/30/18 07:45 FL cervical 2-3V Routine FL fluoroscopy <1hr Routine Hospital Course (1) Cervical stenosis of spinal canal: Patient underwent anterior cervical decompression fusion tolerated as well as taken to the orthopedic floor postoperative. Postop day #1 she is up and bleeding well. No hoarseness. No shortness of breath. Arm symptoms markedly improved. ABDOULAYE drain decreasing probably. Subsequently discharged home. Discharge orders and instructions found in the chart for further review. Total Time Total Time Spent Total Time Spent (In Minutes): Not applicable Discharge Plan Discharge Items Patient Disposition: Home - Self-Care Reason For Visit: Spinal Senosis, Cervical Region Discharge Diagnosis: cervical stenosis Discharge Goals: Decrease discomfort Activity: Per 'Additional Instructions' section Non-emergency contact: Primary Care Provider Call non-emergency contact if: you have any medication questions Follow-up/Referrals: Maritza Mejias DO [Primary Care Provider] - Diet: Regular Addtl Provider Instructions: ACTIVITY RECOMMENDATIONS: SELF CARE INSTRUCTIONS AFTER CERVICAL FUSIONS 1. No smoking. Smoking drastically decreases the chance of a solid fusion. 2. No bending, lifting more than 5 pounds, or twisting (roll like a log when turning in bed). 3. You may shower 3 days after surgery. Thoroughly dry wound. Do not soak in the tub. 4. Cervical collar: Must be worn at all times including sleeping. You may remove the brace only to bath, eat and if you are sitting in a recliner. 5. Please walk as much as you can for exercise. Gradually increase the distance that you walk as your endurance increases. SPECIAL CARE INSTRUCTIONS: VERY IMPORTANT TO READ AND REVIEW A. Do not take any anti-inflammatory medications (i.e. Indocin, Advil, Aspirin, Naprosyn, Aleve, Motrin, etc.) as these may inhibit the chance of a solid fusion. Tylenol is okay to take. B. Your surgical incision has been closed with a cosmetic suture under the skin that will dissolve in about 6 weeks. In 14 days, you can use a pair of clean scissors and cut the suture that is left outside of the skin at the ends of your incision. C. Complications are uncommon, but please contact us if you have any signs or symptoms of: 1. wound infection (fever higher than 102.5 degrees F, redness, separation of wound, drainage, or increasing pain from the incision) 2. blood clots in legs (pain, swelling, redness and warmth in legs) 3. urinary tract infection (fever higher than 102.5 degrees, burning upon urination or increased frequency of urination) 4. nerve problems (inability to walk on your toes or heels, numbness, loss of bowel or bladder control) 5. any other symptoms that concern you. D. Please call the office at if you have any concerns or questions about your operation or recovery. MANAGING PAIN AFTER SPINAL SURGERY 1. Narcotic medication is intended for short-term use and will be provided for surgical pain. Surgical pain usually lasts for a period of 4-6 weeks. Narcotic medication includes Percocet, Vicodin, Darvocet, Tylenol #3 or Lortab. 2. Longer-term pain is more appropriately treated with non-narcotic medication such as Tylenol ES. 3. Muscle spasm is not appropriately treated with narcotics. Muscle relaxers such as Soma, Flexeril or Skelaxin can be used along with Tylenol ES. 4. Remember that we all live with some "aches and pains". This is not unusual or uncommon after an injury or as we get older. 5. We will provide appropriate medication within the normal guidelines of their prescribed use. We will also be very cautious and aware of potential abuse and extended duration of patients' medication needs. 6. Please allow 2-3 days to process refills. Prescriptions will not be mailed but must be picked up at the office. FOLLOW UP VISIT: Keep your scheduled follow-up appointment. Any questions, please call the office at . Prescriptions: Continued potassium chloride 10 mEq Capsule, Extended Release 10 meq PO TID RF: 0 Lantus U-100 Insulin 100 unit/mL Solution 20 unit SUBCUT QPM RF: 0 aspirin [Aspir-81] 81 mg Tablet,Delayed Release (Dr/Ec) 81 mg PO DAILY RF: 0 gabapentin 800 mg Tablet 800 mg PO TID RF: 0 pantoprazole 40 mg Tablet,Delayed Release (Dr/Ec) 40 mg PO QAM RF: 0 metformin 1,000 mg Tablet 1,000 mg PO BID RF: 0 montelukast [Singulair] 10 mg Tablet 10 mg PO QAM RF: 0 hydrochlorothiazide 25 mg Tablet 25 mg PO QAM RF: 0 lorazepam 1 mg Tablet 1 mg PO BID PRN (Reason: Anxiety) RF: 0 oxycodone-acetaminophen 7.5-325 mg Tablet 1 tab PO Q4 PRN (Reason: Pain) RF: 0 benazepril 40 mg Tablet 40 mg PO QAM RF: 0 albuterol sulfate 90 mcg/actuation Hfa Aerosol Inhaler 2 puff INHALATION Q6H PRN (Reason: ASTHMA) RF: 0 metoprolol tartrate 25 mg Tablet 25 mg PO BID RF: 0 Pulmicort Flexhaler 180 mcg/actuation Aerosol Powdr Breath Activated 1 inh INHALATION BID PRN (Reason: ASTHMA) RF: 0 nitroglycerin 0.4 mg Tablet, Sublingual 1 tab Sublingual UD PRN (Reason: Angina) RF: 0 No Action albuterol sulfate 2.5 mg /3 mL (0.083 %) Solution For Nebulization 1.25 mg INHALATION QID PRN (Reason: Shortness Of Breath) RF: 0 sucralfate [Carafate] 1 gram Tablet 1 g PO ACHS RF: 0 Travatan Z 0.004 % Drops 1 drp OPHTHALMIC (EYE) PM RF: 0 hydralazine 25 mg Tablet 25 mg PO TID RF: 0 pravastatin 80 mg Tablet 80 mg PO HS RF: 0 hydroxyzine HCl 25 mg Tablet 25 mg PO QID PRN (Reason: Itching) RF: 0 nystatin 100,000 unit/gram Powder 1 applic TOPICAL TID PRN (Reason: Rash) RF: 0 escitalopram oxalate 10 mg tablet 10 mg PO DAILY RF: 0 dextran 70-hypromellose 0.1-0.3 % Drops 1 drp OPHTHALMIC (EYE) DAILY RF: 0 Stand-Alone Forms: [facility] Discharge Orders: Discharge Order (Routine); Ordered 08/31/18 Ordered By: Sonu Castellanos Admission Data Admit Date/Time: 08/30/18 09:20 Attending Provider: Sonu Castellanos Admit Provider: Sonu Castellanos Primary Care Provider: Maritza Mejias Other Providers: Yadi More Service: Surgical Services
[2018-09-01] MEDS ORDERED: BISACODYL 5 MG TABEC PO PRN (09:19)
[2018-09-01] MEDS ORDERED: POLYETHYLENE (MIRALAX) 17 GM PACK PO PRN (09:19)
== END 2018-08-31 12:30 | disposition home or self-care (01) | DRG 473 ==
LOC: ASU 05:15 → 3E 09:20